=== PATIENT | male | born 1970 | race Caucasian/White ===

== ENCOUNTER 2023-05-15 03:23 | Outpatient (CLI) | payer OTHER, SELFPAY ==
--- NOTE | 2023-05-15 06:45 | DI.MRI_ITS ---
Exam(s) MR CERVICAL SPINE WO EXAM: MR CERVICAL SPINE WO CLINICAL HISTORY: Left C8 symptoms,radiculopathy,m54.12,? C 8 lesion TECHNIQUE: Multiplanar multisequence MRI of the cervical spine was performed without intravenous con trast. COMPARISON: MR Cervical Spine C- MR from 03/11/2016 FINDINGS: BONES: Vertebral body heights are maintained. Intervertebral disc spaces are normal. Alignment is nor mal. Bone marrow signal intensity is within normal limits. CERVICAL CORD: Craniovertebral junction is unremarkable. The cervical cord is normal size and signal intensity. SOFT TISSUES: Unremarkable. C2-3: No disc herniation or bulge is identified. No significant central spinal canal or neural forami nal stenosis. C3-4: No disc herniation or bulge is identified. No significant central spinal canal or neural forami nal stenosis C4-5: There is prominence of the osteophyte disc complex effacing the anterior subarachnoid space. T here is mild narrowing of the left neural foramen. There is prominence of the right uncovertebral tegan int causing moderate narrowing of the right neural foramen. C5-6: There is a moderately large left paracentral disc herniation with involvement of the left neura l foramen. 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 Mild left neural foraminal stenosis is present. There are degenerative changes of the right uncovertebral joint causing mild narrowing of the right neural foramen. C6-7: There is a central disc herniation with extension into the left lateral recess. This causes mi ld narrowing of the central spinal canal with effacement of the anterior subarachnoid space. No sign ificant right neural foraminal stenosis. There is minimal left neural foraminal stenosis. C7-T1: No disc herniation or bulge is identified. No significant central spinal canal or neural narayan inal stenosis IMPRESSION: 1. Interval worsening of the degenerative changes and disc bulges in the cervical spine since 03/11/20 16. The findings are most marked at C5 and C6 with result in central spinal canal and left neural fo raminal stenosis. 2. Multilevel degenerative changes in the cervical spine resulting in right neural foramen narrowing at C4-5 and C5-C6. This is similar to the prior examination. DATA REPOSITORY:
== END 2023-05-15 03:43 ==
LOC: DI 03:23
PROVIDERS: PCP Physician Assistant; Visit Provider Preventive Medicine Occupational Medicine
DX: M50.122 Cervical disc disorder at C5-C6 level with radiculopathy
CPT/HCPCS: 72141

== ENCOUNTER 2023-05-24 08:41 | Outpatient (REF) | payer OTHER, SELFPAY ==
[2023-05-24 14:58] LABS: HCT 41.8 % (40.0-50.0); HGB 14.1 g/dL (13.5-17.5); MCHC 33.7 % (32.0-36.0); MCV 98 fL (80-95); Platelet Count 263 10^3/uL (130-400); RBC 4.27 10^6/uL (4.36-5.78); RDW 12.2 % (11.8-14.1); RDW-SD 43.6 fL; WBC 2.77 10^3/uL (4.4-10.8)
[2023-05-24 15:51] LABS: ALT 24 U/L (16-63); AST 16 U/L (15-37); Albumin 3.9 g/dL (3.4-5.0); Alkaline Phosphatase 58 U/L (46-116); Anion Gap 8.9 mmol/L (3-11); BUN 16 mg/dL (7-18); Bilirubin, Total 0.5 mg/dL (0.2-1.0); CO2 28.1 mmol/L (21.0-32.0); Calcium 9.2 mg/dL (8.5-10.1); Calculated LDL 155 mg/dL (<100); Chloride 103 mmol/L (98-107); Cholesterol 258 mg/dL (<200); Estimated GFR 91.69 (mL/min/1.73m2); Glucose 94 mg/dL (74-106); HDL Cholesterol 75 mg/dL (40-60); Potassium 4.8 mmol/L (3.5-5.1); Sodium 140 mmol/L (136-145); Total Protein 7.7 g/dL (6.4-8.2); Triglyceride 141 mg/dL (<150)
[2023-05-25 09:52] LABS: PSA, Screening 1.5 ng/mL (<=3.5)
== END 2023-05-24 08:42 | disposition home or self-care (01) ==
LOC: NCHCN 08:41
PROVIDERS: PCP Physician Assistant; Visit Provider Physician Assistant
DX: Z12.5 Encounter for screening for malignant neoplasm of prostate (principal); I10 Essential (primary) hypertension; M54.2 Cervicalgia; M54.9 Dorsalgia, unspecified
CPT/HCPCS: 80053; 80061; 84153; 85027

== ENCOUNTER 2023-09-08 07:44 | Outpatient (REF) | payer OTHER, SELFPAY ==
[2023-09-08 14:50] LABS: HCT 40.6 % (40.0-50.0); HGB 13.8 g/dL (13.5-17.5); MCH 33.3 pg (27.0-33.0); MCV 98 fL (80-95); MPV 10.8 fL (8.0-11.0); Platelet Count 265 10^3/uL (130-400); RBC 4.15 10^6/uL (4.36-5.78); RDW 12.6 % (11.8-14.1); RDW-SD 45.3 fL; WBC 3.94 10^3/uL (4.4-10.8)
== END 2023-09-08 07:45 | disposition home or self-care (01) ==
LOC: NCHCN 07:44
PROVIDERS: PCP Physician Assistant; Visit Provider Physician Assistant
DX: D72.819 Decreased white blood cell count, unspecified (principal)
CPT/HCPCS: 85027

== ENCOUNTER 2024-02-21 15:33 | Outpatient (CLI) | payer OTHER, SELFPAY ==
--- NOTE | 2024-02-21 09:00 | DI.RAD_ITS ---
Exam(s) XR HAND RT COMPLETE EXAM: XR HAND RT COMPLETE CLINICAL HISTORY: right hand injury. TECHNIQUE: 2D digital imaging was performed. Three views. COMPARISON: No exams were available for comparison FINDINGS: BONES: No acute fracture is present. No bony destructive lesion is seen. JOINTS: No dislocation present. SOFT TISSUE: Normal. IMPRESSION: Unremarkable radiographs of the right hand. DATA REPOSITORY: RADIATION DOSE DELIVERED:
== END 2024-02-21 15:34 | disposition home or self-care (01) ==
LOC: DIORS 15:33
PROVIDERS: PCP Physician Assistant; Visit Provider Physician Assistant
DX: S69.91XA Unspecified injury of right wrist, hand and finger(s), initial encounter (principal); X58.XXXA Exposure to other specified factors, initial encounter
CPT/HCPCS: 73130

== ENCOUNTER 2025-01-06 10:48 | Outpatient (REF) | payer OTHER, SELFPAY ==
[2025-01-06 15:34] LABS: HCT 41.9 % (40.0-50.0); MCH 32.6 pg (27.0-33.0); MCHC 33.4 % (32.0-36.0); MCV 97 fL (80-95); MPV 10.7 fL (8.0-11.0); Platelet Count 247 10^3/uL (130-400); RDW 11.9 % (11.8-14.1); RDW-SD 42.6 fL; WBC 3.84 10^3/uL (4.4-10.8)
[2025-01-06 15:56] LABS: ALT 31 U/L (16-63); AST 22 U/L (15-37); Albumin 3.8 g/dL (3.4-5.0); Alkaline Phosphatase 85 U/L (46-116); Anion Gap 7.6 mmol/L (3-11); BUN 14 mg/dL (7-18); Bilirubin, Total 0.7 mg/dL (0.2-1.0); CO2 29.4 mmol/L (21.0-32.0); Calcium 9.1 mg/dL (8.5-10.1); Calculated LDL 136 mg/dL (<100); Chloride 102 mmol/L (98-107); Cholesterol 211 mg/dL (<200); Estimated GFR 90.56 (mL/min/1.73m2); Glucose 99 mg/dL (74-106); HDL Cholesterol 46 mg/dL (>or=40); Potassium 4.1 mmol/L (3.5-5.1); Sodium 139 mmol/L (136-145); Total Protein 7.8 g/dL (6.4-8.2); Triglyceride 149 mg/dL (<150)
[2025-01-06 22:27] LABS: PSA, Screening 1.4 ng/mL (<=3.5)
== END 2025-01-06 10:49 | disposition home or self-care (01) ==
LOC: NCHCN 10:48
PROVIDERS: PCP Physician Assistant; Visit Provider Physician Assistant
DX: I10 Essential (primary) hypertension (principal); E78.5 Hyperlipidemia, unspecified; Z12.5 Encounter for screening for malignant neoplasm of prostate
CPT/HCPCS: 80053; 80061; 84153; 85027